=== PATIENT | female | born 1960 | race Two or more races ===

== ENCOUNTER 2020-11-18 18:40 | Emergency (ER) | payer BC, MEDICAID, OTHER ==
[~2020-11-18] VITALS: Ht 175.3 cm; Wt 81.6 kg
[~2020-11-18 18:40] MED LIST: PRO125RS; WARF1TAB; [UNRECOGNIZED DRUG - CODE]
[2020-11-18] MEDS ORDERED: hydrALAZINE HCL 20 MG/ML VL IV ONE (19:30)
[2020-11-18 19:44] LABS: Basophils # (auto) 0.1 10 ^3/uL (0-0.2); Basophils % (auto) 0.7 % (0.0-2.0); Eosinophils # (auto) 0.3 10 ^3/uL (0-0.8); Eosinophils % (auto) 4.5 % (0.0-7.0); Hemoglobin 14.1 g/dL (12.2-16.2); Lymphocytes # (auto) 1.3 10 ^3/uL (0.4-5.4); Lymphocytes % (auto) 17.2 % (10.0-50.0); Mean Corpuscular Hemoglobin 28.2 pg (28.0-32.0); Mean Corpuscular Hgb Conc. 32.7 g/dL (32.0-36.0); Mean Corpuscular Volume 86.3 fL (80.0-100.0); Monocytes # (auto) 0.4 10 ^3/uL (0-1.3); Monocytes % (auto) 5.3 % (0.0-12.0); Neutrophils # (auto) 5.5 10 ^3/uL (1.6-8.6); Neutrophils % (auto) 72.3 % (37.0-80.0); Nucleated Red Blood Cells % 0.1 %; Red Blood Cells 4.98 10^6/uL (4.0-5.20); Red Cell Distribution Width 13.5 % (11.8-14.3); White Blood Cell 7.6 10^3/uL (4.4-10.8)
[2020-11-18 20:05] LABS: Alanine Aminotransferase 30 U/L (13-56); Albumin 3.5 g/dL (3.4-5.0); Anion Gap 4 (5-15); Blood Urea Nitrogen 21 mg/dL (7-18); Calcium 8.9 mg/dL (8.5-10.1); Carbon Dioxide 28 mmol/L (21-32); Chloride 107 mmol/L (98-107); Glucose 106 mg/dL (74-106); Potassium 3.9 mmol/L (3.5-5.1); Sodium 139 mmol/L (136-145)
[2020-11-18 20:09] LABS: Alkaline Phosphatase 83 U/L (45-117); BUN/Creatinine Ratio 25.3; GFR African American 91 mL/min; GFR Non-African American 75 mL/min
[2020-11-18 20:10] LABS: Aspartate Aminotransferase 18 U/L (15-37); Bilirubin, Total 0.2 mg/dL (0.2-1.0); Total Protein 7.9 g/dL (6.4-8.2)
[2020-11-19] MEDS ORDERED: IOHEXOL 350 MG/ML 100ML IJ ONE (00:05)
[2020-11-19 01:41] VITALS: BP 149/91
== END 2020-11-19 01:52 | disposition home or self-care (01) ==
LOC: EDBD 18:40 → ER 18:52
DX: R07.89 Other chest pain (principal); R06.02 Shortness of breath; Z90.49 Acquired absence of other specified parts of digestive tract
CPT/HCPCS: 36415; 71045; 71275; 80053; 84484; 85025; 85379; 93005; 96374; 99285; J0360; Q9967